=== PATIENT | male | born 1970 | race Two or more races ===

== ENCOUNTER 2023-08-10 15:26 | Inpatient (IN) | payer OTHER ==
[2023-08-10 17:19] VITALS: BMI 25.9
[2023-08-10] MEDS ORDERED: ACETAMINOPHEN 325 MG TABLET (FP) PO PRN (20:01)
[2023-08-10] MEDS ORDERED: BENZOCAINE/MENTHOL (CHLORASEPTIC ) LOZENGE MM PRN (20:01)
[2023-08-10] MEDS ORDERED: hydrOXYzine PAMOATE 25 MG CAPSULE (FP) PO PRN (20:01)
[2023-08-10] MEDS ORDERED: BENZONATATE 200 MG CAPSULE PO PRN (20:01)
[2023-08-10] MEDS ORDERED: BISMUTH SUBSALICYLATE 524 MG/30 ML PO PRN (20:01)
[2023-08-10] MEDS ORDERED: MAG HYDROX/AL HYDROX/SIMETH 30 ML UNIT-DOSE CUP PO PRN (20:01)
[2023-08-10] MEDS ORDERED: METHOCARBAMOL 500 MG TABLET PO PRN (20:01)
[2023-08-10] MEDS ORDERED: ONDANSETRON *ODT* 4 MG TABLET SL PRN (20:01)
[2023-08-10] MEDS ORDERED: guaiFENesin 600 MG TABLET.ER (FP) PO PRN (20:01)
[2023-08-10] MEDS ORDERED: DICYCLOMINE HCL 10 MG CAPSULE PO PRN (20:01)
[2023-08-10] MEDS ORDERED: MAGNESIUM HYDROX 2400MG/30ML ORAL SUSPENSION 30 ML CUP PO PRN (20:01)
[2023-08-10] MEDS ORDERED: LOPERAMIDE HCL 2 MG CAPSULE PO PRN (20:01)
[2023-08-10] MEDS ORDERED: POLYETHYLENE GLYCOL (HEALTHYLAX) 3350 17 GM PACKET PO PRN (20:01)
[2023-08-10] MEDS ORDERED: IBUPROFEN 400 MG TABLET (FP) PO PRN (20:01)
[2023-08-10] MEDS ORDERED: traZODone HCL 50 MG TABLET (FP) PO ONE (22:00)
[2023-08-10] MEDS: MELATONIN 5 MG TABLETS PO SCH (22:40)
[2023-08-10] MEDS: GABAPENTIN 100 MG CAPSULE PO SCH (22:40)
[2023-08-10] MEDS: FAMOTIDINE 20 MG TABLET PO SCH (22:40)
[2023-08-10] MEDS: THIAMINE HCL 100 MG TABLET (FP) PO SCH (22:40)
[2023-08-10] MEDS: diazePAM 5 MG TABLET PO SCH (22:41)
[2023-08-11] MEDS: diazePAM 5 MG TABLET PO SCH ×4 (05:36→22:18)
[2023-08-11] MEDS: GABAPENTIN 100 MG CAPSULE PO SCH ×3 (05:37→22:18)
[2023-08-11] MEDS: FLUoxetine HCL 20 MG CAPSULE PO SCH (10:54)
[2023-08-11] MEDS: FAMOTIDINE 20 MG TABLET PO SCH ×2 (10:54→22:19)
[2023-08-11] MEDS: PRENATAL VITAMINS W/ FOLIC ACID TABLET (FP) PO SCH (10:54)
[2023-08-11] MEDS: FOLIC ACID 1 MG TABLET (FP) PO SCH (10:55)
[2023-08-11] MEDS: LOSARTAN POTASSIUM 25 MG TABLET PO SCH (10:55)
[2023-08-11 12:16] LABS: ALBUMIN 3.7 g/dl (3.4-5.0); CALCIUM 8.5 mg/dL (8.5-10.1)
[2023-08-11 12:18] LABS: BLOOD UREA NITROGEN 14.8 mg/dL (7-18); HEMATOCRIT 36.9 % (35.4-49); HEMOGLOBIN 12.7 GM/dL (11.7-16.9); MCHC 34.5 g/dl (32.0-35.9); MEAN CELL VOLUME 92.9 fl (80-96); MEAN PLT VOLUME 9.7 fl (7.5-11.1); PLATELET COUNT 171 10^3/uL (134-434); RBC 3.97 M/mm3 (4.00-5.60); RDW 14.6 % (11.9-15.9); WHITE BLOOD COUNT 5.2 K/mm3 (4.0-10.0)
[2023-08-11 12:21] LABS: BILIRUBIN,TOTAL 0.9 mg/dL (0.2-1); TOT PROT 6.9 g/dl (6.4-8.2)
[2023-08-11] MEDS: MELATONIN 5 MG TABLETS PO SCH (22:17)
[2023-08-11] MEDS: THIAMINE HCL 100 MG TABLET (FP) PO SCH (22:17)
[2023-08-11] MEDS: traZODone HCL 50 MG TABLET (FP) PO SCH (22:18)
[2023-08-12] MEDS: diazePAM 5 MG TABLET PO SCH ×3 (05:10→22:28)
[2023-08-12] MEDS: GABAPENTIN 100 MG CAPSULE PO SCH ×3 (05:10→22:27)
[2023-08-12] MEDS: P-EPHED 60MG/TRIPROLIDI 2.5MG TABLET PO PRN (08:55)
[2023-08-12] MEDS: ALBUTEROL SO4 HFA INHALER IH PRN (08:55)
[2023-08-12] MEDS: FOLIC ACID 1 MG TABLET (FP) PO SCH (10:19)
[2023-08-12] MEDS: PRENATAL VITAMINS W/ FOLIC ACID TABLET (FP) PO SCH (10:19)
[2023-08-12] MEDS: FAMOTIDINE 20 MG TABLET PO SCH ×2 (10:19→22:28)
[2023-08-12] MEDS: FLUoxetine HCL 20 MG CAPSULE PO SCH (10:19)
[2023-08-12] MEDS: LOSARTAN POTASSIUM 25 MG TABLET PO SCH (10:19)
[2023-08-12] MEDS: diazePAM 5 MG TABLET PO PRN ×2 (10:20→17:29)
[2023-08-12] MEDS: traZODone HCL 50 MG TABLET (FP) PO SCH (22:27)
[2023-08-12] MEDS: MELATONIN 5 MG TABLETS PO SCH (22:28)
[2023-08-12] MEDS: THIAMINE HCL 100 MG TABLET (FP) PO SCH (22:30)
[2023-08-13] MEDS: GABAPENTIN 100 MG CAPSULE PO SCH ×3 (05:48→22:14)
[2023-08-13] MEDS: diazePAM 5 MG TABLET PO SCH ×2 (05:49→17:11)
[2023-08-13] MEDS: FOLIC ACID 1 MG TABLET (FP) PO SCH (09:33)
[2023-08-13] MEDS: LOSARTAN POTASSIUM 25 MG TABLET PO SCH (09:33)
[2023-08-13] MEDS: PRENATAL VITAMINS W/ FOLIC ACID TABLET (FP) PO SCH (09:33)
[2023-08-13] MEDS: FLUoxetine HCL 20 MG CAPSULE PO SCH (09:33)
[2023-08-13] MEDS: P-EPHED 60MG/TRIPROLIDI 2.5MG TABLET PO PRN (09:33)
[2023-08-13] MEDS: ALBUTEROL SO4 HFA INHALER IH PRN (09:33)
[2023-08-13] MEDS: FAMOTIDINE 20 MG TABLET PO SCH ×2 (09:33→22:13)
[2023-08-13] MEDS: diazePAM 5 MG TABLET PO PRN ×2 (09:34→14:03)
[2023-08-13] MEDS: IBUPROFEN 600 MG TABLET (FP) PO PRN (16:36)
[2023-08-13] MEDS: THIAMINE HCL 100 MG TABLET (FP) PO SCH (22:13)
[2023-08-13] MEDS: MELATONIN 5 MG TABLETS PO SCH (22:13)
[2023-08-13] MEDS: traZODone HCL 50 MG TABLET (FP) PO SCH (22:14)
[2023-08-14] MEDS: IBUPROFEN 600 MG TABLET (FP) PO PRN (05:20)
[2023-08-14] MEDS: GABAPENTIN 100 MG CAPSULE PO SCH (05:20)
[2023-08-14] MEDS ORDERED: diazePAM 5 MG TABLET PO ONE (06:00)
[2023-08-14 09:20] VITALS: BP 121/87; PULSE 77; RESP 16; TEMP 97.5
[2023-08-14] MEDS: FLUoxetine HCL 20 MG CAPSULE PO SCH (09:47)
[2023-08-14] MEDS: PRENATAL VITAMINS W/ FOLIC ACID TABLET (FP) PO SCH (09:47)
[2023-08-14] MEDS: FAMOTIDINE 20 MG TABLET PO SCH (09:48)
[2023-08-14] MEDS: FOLIC ACID 1 MG TABLET (FP) PO SCH (10:07)
[2023-08-14] MEDS: LOSARTAN POTASSIUM 25 MG TABLET PO SCH (10:07)
[2023-08-14] MEDS: ALBUTEROL SO4 HFA INHALER IH PRN (10:36)
== END 2023-08-14 10:45 | disposition home or self-care (01) | DRG 775 ==
LOC: YASAS 15:26 → Y6N 20:54
PROVIDERS: ADMIT Allergy & Immunology; ATTEND Surgery
PROC: HZ2ZZZZ Detoxification Services for Substance Abuse Treatment (ICD-10-PCS; principal; 2023-08-10)
DX: F10.230 Alcohol dependence with withdrawal, uncomplicated (principal); F17.210 Nicotine dependence, cigarettes, uncomplicated; F10.280 Alcohol dependence with alcohol-induced anxiety disorder; F10.24 Alcohol dependence with alcohol-induced mood disorder; I10 Essential (primary) hypertension; J45.909 Unspecified asthma, uncomplicated; K21.9 Gastro-esophageal reflux disease without esophagitis; R73.9 Hyperglycemia, unspecified; Z59.00 Homelessness unspecified; Z56.0 Unemployment, unspecified
CPT/HCPCS: 36415; 80053; 82962; 85027; 86780; 87635; Q0162